=== PATIENT | male | born 1990 | race African-American/Black ===

== ENCOUNTER 2017-03-31 06:14 | Emergency (ER) | payer MEDICAID, OTHER ==
[~2017-03-31] VITALS: Ht 182.9 cm; Wt 68.0 kg
[~2017-03-31 06:14] MED LIST: ALBU2.5V13 IH; PRED1TAB PO
[2017-03-31 07:29] LABS: CLARITY URINE CLOUDY (CLEAR); COLOR URINE DARK YELLOW (YELLOW); GLUCOSE URINE NEGATIVE (NEGATIVE); KETONES URINE TRACE (NEGATIVE); LEUKOCYTE ESTERASE URINE NEGATIVE (NEGATIVE); NITRITE URINE NEGATIVE (NEGATIVE); OCCULT BLOOD URINE TRACE (NEGATIVE); PH URINE 5.5 (4.5-8.0); PROTEIN URINE 2+ (NEGATIVE); SPECIFIC GRAVITY URINE 1.031 (1.005-1.030)
[2017-03-31 07:40] LABS: *AMPHETAMINES SCREEN URINE PRESUMTIVE POSITIVE (NEGATIVE); *BARBITURATES SCREEN URINE NEGATIVE (NEGATIVE); *BENZODIAZEPINES SCREEN URINE PRESUMTIVE POSITIVE (NEGATIVE); *COCAINE SCREEN URINE NEGATIVE (NEGATIVE); CANNABINOID URINE SCREEN PRESUMTIVE POSITIVE (NEGATIVE); METHADONE URINE SCREEN NEGATIVE (NEGATIVE); OPIATES URINE SCREEN NEGATIVE (NEGATIVE); PHENCYCLIDINE URINE SCREEN NEGATIVE (NEGATIVE)
[2017-03-31 07:53] LABS: BASOPHILS % 0.7 % (0.0-2.0); EOSINOPHILS % 4.6 % (0.0-5.0); HEMATOCRIT. 42.3 % (42.0-52.0); LYMPHOCYTES % 12.9 % (20.0-50.0); MEAN CORPUSCULAR HEMOGLOBIN 27.6 pg (28.0-32.0); MEAN CORPUSCULAR VOLUME 83.3 fL (80.0-94.0); MEAN PLATELET VOLUME 9.6 fl (7.4-10.4); MONOCYTES % 6.8 % (2.0-8.0); PLATELET 235 x1000/uL (130-400); RED BLOOD CELL COUNT 5.08 mill/uL (4.7-6.1); RED CELL DISTRIBUTION WIDTH 13.6 % (11.6-14.6)
[2017-03-31 08:01] LABS: CARBON DIOXIDE 23 mEq/L (21-32); CHLORIDE 109 mEq/L (98-107); ETHANOL BLOOD < 10 mg/dL
[2017-03-31] MEDS ORDERED: HALOPERIDOL LACTATE 5MG/ML VIAL IM ONE (08:15)
[2017-03-31] MEDS: LORAZEPAM 2MG/ML CPJ IV PRN ×2 (08:17→18:46)
[2017-04-01] MEDS: LORAZEPAM 2MG/ML CPJ IV PRN (07:39)
[2017-04-01 18:17] VITALS: BP 130/70
== END 2017-04-01 19:12 ==
LOC: ER 06:14
DX: F23 Brief psychotic disorder (principal); F19.10 Other psychoactive substance abuse, uncomplicated
CPT/HCPCS: 36415; 51702; 80053; 80305; 81001; 82962; 85025; 96372; 96374; 96376; 99285; G0482; J1630; J2060; Z7610; A4315

== ENCOUNTER 2017-04-30 15:34 | Emergency (ER) | payer SELFPAY ==
[~2017-04-30] VITALS: Ht 180.3 cm; Wt 80.0 kg
[2017-04-30 16:02] VITALS: BP 160/87
[2017-04-30] MEDS: LORAZEPAM 0.5MG TABLET PO ONE (16:18)
== END 2017-04-30 16:58 | disposition home or self-care (01) ==
LOC: ER 15:40
DX: F41.9 Anxiety disorder, unspecified (principal)
CPT/HCPCS: 93005; 99283; Z7610

== ENCOUNTER 2017-05-09 05:17 | Emergency (ER) | payer SELFPAY ==
[~2017-05-09] VITALS: Ht 185.4 cm; Wt 63.0 kg
[2017-05-09] MEDS ORDERED: PREDNISONE 20MG TABLET PO STA (06:06)
[2017-05-09] MEDS ORDERED: IPRATROPIUM BROMIDE (0.02%) 0.5MG/2.5ML NEB HHN STA (06:06)
[2017-05-09] MEDS ORDERED: ALBUTEROL (0.083%) 2.5MG/3ML NEB HHN STA (06:06)
[2017-05-09] MEDS ORDERED: CEFTRIAXONE SODIUM 250 MG/VIAL IM ONE (06:15)
[2017-05-09] MEDS ORDERED: AZITHROMYCIN 500 MG TABLET PO ONE (06:15)
[2017-05-09] MEDS ORDERED: LIDOCAINE HCL 1% 20ML VIAL (Pyxis) INJ MC ONE (07:00)
[2017-05-09 07:30] VITALS: BP 120/72
== END 2017-05-09 08:08 | disposition left against medical advice (07) ==
LOC: ER 05:17
DX: J45.909 Unspecified asthma, uncomplicated (principal); F12.10 Cannabis abuse, uncomplicated; F17.200 Nicotine dependence, unspecified, uncomplicated; F41.9 Anxiety disorder, unspecified; Z20.2 Contact with and (suspected) exposure to infections with a predominantly sexual mode of transmission
CPT/HCPCS: 71010; 94640; 96372; 99283; J0696; J3490; J7512; J7611

== ENCOUNTER 2017-11-02 14:25 | Inpatient (IN) | payer SELFPAY ==
[~2017-11-02] VITALS: Ht 182.9 cm; Wt 80.7 kg
[2017-11-02] MEDS: ALBUTEROL (0.083%) 2.5MG/3ML NEB HHN ONE ×2 (15:30→16:30)
[2017-11-02] MEDS: IPRATROPIUM/ALBUTEROL 0.5-3(2.5)MG/3ML NEB HHN ONE ×2 (15:30→16:30)
[2017-11-02] MEDS ORDERED: PREDNISONE 20MG TABLET PO STA (16:10)
[2017-11-02 16:32] LABS: BASOPHILS % 0.6 % (0.0-2.0); EOSINOPHILS % 9.5 % (0.0-5.0); HEMATOCRIT. 43.7 % (42.0-52.0); HEMOGLOBIN. 14.2 g/dL (14.0-18.0); LYMPHOCYTES % 14.3 % (20.0-50.0); MEAN CORPUSCULAR HEMOGLOBIN 27.5 pg (28.0-32.0); MEAN CORPUSCULAR VOLUME 84.9 fL (80.0-94.0); MEAN PLATELET VOLUME 8.8 fl (7.4-10.4); MONOCYTES % 6.4 % (2.0-8.0); NEUTROPHILS % 69.2 % (40.0-76.0); PLATELET 278 x1000/uL (130-400); RED BLOOD CELL COUNT 5.15 mill/uL (4.7-6.1); RED CELL DISTRIBUTION WIDTH 12.9 % (11.6-14.6)
[2017-11-02 16:46] LABS: CHLORIDE 109 mEq/L (98-107)
[2017-11-02] MEDS ORDERED: SODIUM CHLORIDE 0.9% 1,000 ML IV ONE (18:00)
[2017-11-02] MEDS ORDERED: ALBUTEROL (0.5%) 2.5MG/0.5ML NEB HHN ONE (19:30)
[2017-11-02] MEDS ORDERED: MAGNESIUM 2 G PREMIX 50 ML IV ONE (19:30)
[2017-11-02 23:05] VITALS: BP 122/63
[2017-11-03] VITALS: BP 110/59
[2017-11-03] MEDS ORDERED: MAGNESIUM/ALUMINUM HYDROXIDE/SIMETHICONE 30ML UDC PO PRN
[2017-11-03] MEDS ORDERED: DOCUSATE SODIUM 100MG CAPSULE PO PRN
[2017-11-03] MEDS ORDERED: ACETAMINOPHEN 325MG TABLET PO PRN
[2017-11-03] MEDS ORDERED: CLONIDINE 0.1MG TABLET PO PRN
[2017-11-03] MEDS ORDERED: HYDROCODONE/ACETAMINOPHEN 5/325MG TABLET PO PRN
[2017-11-03] MEDS ORDERED: ONDANSETRON HCL 4MG/2ML VIAL IV PRN
[2017-11-03] MEDS ORDERED: ZOLPIDEM TARTRATE 5MG TABLET PO PRN
[2017-11-03] MEDS: IPRATROPIUM/ALBUTEROL 0.5-3(2.5)MG/3ML NEB INH PRN ×4 (00:11→08:43)
[2017-11-03 00:43] LABS: CHLORIDE 108 mEq/L (98-107)
[2017-11-03 04:00] VITALS: BP 106/56
[2017-11-03] MEDS ORDERED: METHYLPREDNISOLONE SOD SUCC 40 MG/ML VIAL IV SCH (06:00)
[2017-11-03 06:17] LABS: BASOPHILS % 0.4 % (0.0-2.0); EOSINOPHILS % 0.1 % (0.0-5.0); HEMATOCRIT. 41.5 % (42.0-52.0); HEMOGLOBIN. 13.4 g/dL (14.0-18.0); MEAN CORPUSCULAR HEMOGLOBIN 27.6 pg (28.0-32.0); MEAN CORPUSCULAR VOLUME 85.2 fL (80.0-94.0); NEUTROPHILS % 82.5 % (40.0-76.0); PLATELET 297 x1000/uL (130-400); RED BLOOD CELL COUNT 4.87 mill/uL (4.7-6.1); RED CELL DISTRIBUTION WIDTH 12.9 % (11.6-14.6)
[2017-11-03 07:02] LABS: LDL CHOLESTEROL 57 mg/dL (5-100)
[2017-11-03 07:10] LABS: CREATINE KINASE 672 IU/L (39-308); CREATINE KINASE MB FRACTION 8.6 ng/mL (0.5-3.6); HDL CHOLESTEROL 44 mg/dL (40-59); TROPONIN I < 0.02 ng/mL (0.00-0.04)
[2017-11-03 08:00] VITALS: BP 111/56
[2017-11-03] MEDS: GUAIFENESIN 200MG/10ML SUGAR FREE UDC PO PRN (08:04)
[2017-11-03] MEDS: ENOXAPARIN 40MG/0.4ML SYR SUBCUT SCH (08:04)
[2017-11-03] MEDS ORDERED: ALPRAZOLAM 0.25 MG TABLET PO PRN (10:45)
[2017-11-03] MEDS: IPRATROPIUM/ALBUTEROL 0.5-3(2.5)MG/3ML NEB INH SCH ×3 (12:15→20:19)
[2017-11-03] MEDS: BUDESONIDE 0.5MG/2ML NEB HHN SCH ×2 (12:15→20:19)
[2017-11-03] MEDS: SODIUM CHLORIDE 0.9% 1,000 ML IV SCH (12:25)
[2017-11-03] MEDS: FAMOTIDINE 20MG TABLET PO SCH ×2 (12:26→21:17)
[2017-11-03 14:12] LABS: CLARITY URINE CLEAR (CLEAR); COLOR URINE YELLOW (YELLOW); KETONES URINE TRACE (NEGATIVE); LEUKOCYTE ESTERASE URINE NEGATIVE (NEGATIVE); NITRITE URINE NEGATIVE (NEGATIVE); OCCULT BLOOD URINE NEGATIVE (NEGATIVE); PH URINE 5.5 (4.5-8.0); PROTEIN URINE NEGATIVE (NEGATIVE); UROBILINOGEN URINE 0.2 E.U./dL (0.2-1.0)
[2017-11-03 14:33] LABS: *AMPHETAMINES SCREEN URINE NEGATIVE (NEGATIVE); *BARBITURATES SCREEN URINE NEGATIVE (NEGATIVE); *BENZODIAZEPINES SCREEN URINE NEGATIVE (NEGATIVE); *COCAINE SCREEN URINE NEGATIVE (NEGATIVE); CANNABINOID URINE SCREEN PRESUMTIVE POSITIVE (NEGATIVE); METHADONE URINE SCREEN NEGATIVE (NEGATIVE); OPIATES URINE SCREEN NEGATIVE (NEGATIVE); PHENCYCLIDINE URINE SCREEN NEGATIVE (NEGATIVE)
[2017-11-03] MEDS: NICOTINE 14MG PATCH TD SCH (14:49)
[2017-11-03] MEDS: METHYLPREDNISOLONE SOD SUCC 125 MG/2 ML VIAL IV SCH ×2 (14:49→21:17)
[2017-11-03 15:40] LABS: CREATINE KINASE 646 IU/L (39-308); TROPONIN I < 0.02 ng/mL (0.00-0.04)
[2017-11-03 16:06] VITALS: BP 107/43
[2017-11-03 20:00] VITALS: BP 112/60
[2017-11-03] MEDS: MONTELUKAST SODIUM 10MG TABLET PO SCH (21:17)
[2017-11-04] VITALS (7 sets, daily range): BP systolic 54–133; BP diastolic 38–67
[2017-11-04] MEDS: SODIUM CHLORIDE 0.9% 1,000 ML IV SCH ×2 (00:05→14:43)
[2017-11-04] MEDS: IPRATROPIUM/ALBUTEROL 0.5-3(2.5)MG/3ML NEB INH SCH ×6 (00:44→21:00)
[2017-11-04] MEDS: GUAIFENESIN 200MG/10ML SUGAR FREE UDC PO PRN (01:06)
[2017-11-04] MEDS: METHYLPREDNISOLONE SOD SUCC 125 MG/2 ML VIAL IV SCH ×3 (05:43→21:22)
[2017-11-04 07:04] LABS: HEMATOCRIT. 41.1 % (42.0-52.0); HEMOGLOBIN. 13.4 g/dL (14.0-18.0); MEAN CORPUSCULAR HEMOGLOBIN 27.7 pg (28.0-32.0); MEAN CORPUSCULAR VOLUME 85.1 fL (80.0-94.0); MEAN PLATELET VOLUME 9.8 fl (7.4-10.4); PLATELET 283 x1000/uL (130-400); RED BLOOD CELL COUNT 4.83 mill/uL (4.7-6.1)
[2017-11-04 07:29] LABS: CHLORIDE 105 mEq/L (98-107)
[2017-11-04] MEDS: BUDESONIDE 0.5MG/2ML NEB HHN SCH ×2 (07:46→21:02)
[2017-11-04] MEDS: NICOTINE 14MG PATCH TD SCH (08:18)
[2017-11-04] MEDS: FAMOTIDINE 20MG TABLET PO SCH ×2 (08:18→21:22)
[2017-11-04] MEDS: ENOXAPARIN 40MG/0.4ML SYR SUBCUT SCH (08:18)
[2017-11-04 20:24] LABS: PLATELET ESTIMATE NORMAL
[2017-11-04] MEDS: MONTELUKAST SODIUM 10MG TABLET PO SCH (21:22)
[2017-11-05] VITALS: BP 121/59
[2017-11-05] MEDS: IPRATROPIUM/ALBUTEROL 0.5-3(2.5)MG/3ML NEB INH SCH ×6 (00:35→21:04)
[2017-11-05] MEDS: SODIUM CHLORIDE 0.9% 1,000 ML IV SCH (03:46)
[2017-11-05] MEDS: HYDROXYZINE 25MG TABLET PO PRN ×2 (03:53→21:36)
[2017-11-05 04:00] VITALS: BP 110/45
[2017-11-05] MEDS: METHYLPREDNISOLONE SOD SUCC 125 MG/2 ML VIAL IV SCH ×3 (05:29→21:32)
[2017-11-05 06:37] LABS: CHLORIDE 103 mEq/L (98-107)
[2017-11-05 06:39] LABS: HEMATOCRIT. 40.8 % (42.0-52.0); HEMOGLOBIN. 13.3 g/dL (14.0-18.0); MEAN CORPUSCULAR HEMOGLOBIN 27.9 pg (28.0-32.0); MEAN CORPUSCULAR VOLUME 85.4 fL (80.0-94.0); MEAN PLATELET VOLUME 9.8 fl (7.4-10.4); PLATELET 266 x1000/uL (130-400); RED BLOOD CELL COUNT 4.78 mill/uL (4.7-6.1); RED CELL DISTRIBUTION WIDTH 12.8 % (11.6-14.6)
[2017-11-05] MEDS: BUDESONIDE 0.5MG/2ML NEB HHN SCH ×2 (07:37→21:04)
[2017-11-05 08:00] VITALS: BP 107/54
[2017-11-05] MEDS: FAMOTIDINE 20MG TABLET PO SCH ×2 (08:05→21:32)
[2017-11-05] MEDS: ENOXAPARIN 40MG/0.4ML SYR SUBCUT SCH (08:06)
[2017-11-05] MEDS: NICOTINE 14MG PATCH TD SCH (08:06)
[2017-11-05 12:00] VITALS: BP 104/46
[2017-11-05 13:37] LABS: PLATELET ESTIMATE NORMAL
[2017-11-05] MEDS ORDERED: TERBUTALINE SULFATE 1MG/ML VIAL SUBCUT NR (14:00)
[2017-11-05] MEDS ORDERED: SODIUM CHLORIDE 0.9% 1,000 ML IV SCH (14:30)
[2017-11-05] MEDS ORDERED: SODIUM CHLORIDE 0.9% 1000ML BAG (SEPSIS BOLUS) IV ONE (14:30)
[2017-11-05 15:09] LABS: BG BASE EXCESS 0.6 mmol/L (-2.0-2.0); BG CARBOXYHEMOGLOBIN 0.4 % (0.5-1.5); BG FRACTION INSPIRED OXYGEN 21; BG HCO3 ACT 24.2 mmol/L (22.0-26.0); BG METHEMOGLOBIN 0.6 % (0.0-1.5); BG OXYGEN SATURATION 94.9 % (92.0-98.5); BG PCO2 35.5 mmHg (35.0-45.0); BG PH 7.451 (7.350-7.450); BG PO2 75.4 mmHg (75.0-100.0); BG SAMPLE SITE RIGHT RADIAL; BG TOTAL HEMOGLOBIN 13.9 g/dL (12.0-18.0); BG VENT MODE ROOM AIR
[2017-11-05 16:00] VITALS: BP 113/68
[2017-11-05] MEDS: MONTELUKAST SODIUM 10MG TABLET PO SCH (21:32)
[2017-11-06] VITALS: BP 124/71
[2017-11-06] MEDS: IPRATROPIUM/ALBUTEROL 0.5-3(2.5)MG/3ML NEB INH SCH ×4 (00:48→12:09)
[2017-11-06 04:00] VITALS: BP 121/74
[2017-11-06 06:35] LABS: HEMATOCRIT. 39.6 % (42.0-52.0); HEMOGLOBIN. 13.1 g/dL (14.0-18.0); MEAN CORPUSCULAR HEMOGLOBIN 28.1 pg (28.0-32.0); MEAN CORPUSCULAR VOLUME 84.9 fL (80.0-94.0); MEAN PLATELET VOLUME 9.7 fl (7.4-10.4); PLATELET 256 x1000/uL (130-400); RED BLOOD CELL COUNT 4.67 mill/uL (4.7-6.1); RED CELL DISTRIBUTION WIDTH 12.6 % (11.6-14.6)
[2017-11-06 07:20] LABS: CHLORIDE 104 mEq/L (98-107); CREATINE KINASE 121 IU/L (39-308)
[2017-11-06] MEDS: METHYLPREDNISOLONE SOD SUCC 125 MG/2 ML VIAL IV SCH (07:27)
[2017-11-06 08:00] VITALS: BP 99/51
[2017-11-06] MEDS: NICOTINE 14MG PATCH TD SCH (08:12)
[2017-11-06] MEDS: ENOXAPARIN 40MG/0.4ML SYR SUBCUT SCH (08:12)
[2017-11-06] MEDS: FAMOTIDINE 20MG TABLET PO SCH (08:12)
[2017-11-06] MEDS: BUDESONIDE 0.5MG/2ML NEB HHN SCH (08:50)
[2017-11-06 12:00] VITALS: BP 131/75
[2017-11-06] MEDS ORDERED: PREDNISONE 20MG TABLET PO SCH (13:00)
[2017-11-06 17:27] LABS: ATYPICAL LYMPHOCYTES 1; PLATELET ESTIMATE NORMAL
== END 2017-11-06 13:55 | disposition home or self-care (01) | DRG 133 ==
LOC: ER 14:25 → 8WST 21:13 → ENRESERV 21:38
PROVIDERS: ADMIT Internal Medicine; ATTEND Internal Medicine
DX: J96.00 Acute respiratory failure, unspecified whether with hypoxia or hypercapnia (principal); M62.82 Rhabdomyolysis; D64.9 Anemia, unspecified; J45.901 Unspecified asthma with (acute) exacerbation; D72.829 Elevated white blood cell count, unspecified; E07.81 Sick-euthyroid syndrome; F12.10 Cannabis abuse, uncomplicated; F17.200 Nicotine dependence, unspecified, uncomplicated; F41.9 Anxiety disorder, unspecified; Z60.2 Problems related to living alone; T38.0X5A Adverse effect of glucocorticoids and synthetic analogues, initial encounter; R73.9 Hyperglycemia, unspecified; Z79.899 Other long term (current) drug therapy; Y92.89 Other specified places as the place of occurrence of the external cause
CPT/HCPCS: 36415; 36600; 71045; 80048; 80053; 80061; 80305; 81003; 82375; 82550; 82553; 82805; 83036; 84443; 84484; 85025; 85379; 87040; 87804; 93970; 94640; 96365; 96375; 99285; J1650; J2920; J2930; J3105; J3475; J7030; J7512; J7611; J7620; J7626

== ENCOUNTER 2017-11-07 04:28 | Emergency (ER) | payer SELFPAY ==
[~2017-11-07] VITALS: Ht 185.4 cm; Wt 90.0 kg
[2017-11-07 04:31] VITALS: BP 116/90
== END 2017-11-07 05:51 | disposition left against medical advice (07) ==
LOC: ER 04:28
DX: R05 Cough (principal); Z53.21 Procedure and treatment not carried out due to patient leaving prior to being seen by health care provider